=== PATIENT | male | born 2000 | race Caucasian/White ===

== ENCOUNTER 2024-08-16 10:44 | Emergency (ER) | payer MEDICAID, SELFPAY ==
[2024-08-16 11:10] VITALS: BP 145/87; PULSE 95; RESP 19; TEMP 37.1; O2SAT 96; BMI 24.8
--- NOTE | 2024-08-16 11:11 | XR_ITS ---
Examination: Hand, right 3 views Technique: Hand AP, oblique, lateral 3 views Date and time of exam: August 16, 2024 1114 hours INDICATIONS: Patient fell today with injury to the hand, hand pain. FINDINGS: Acute fractures at the bases of the fourth and fifth metacarpals There also appears to be a fracture of the dorsal surface of the hamate IMPRESSION: Recommend CT scan wrist follow-up to better assess fractures base fourth and fifth metatarsals and fractures dorsal distal surface of the hamate
--- NOTE | 2024-08-16 11:47 | XR_ITS ---
Examination: CT right, without contrast. 2-D sagittal reconstructions. 2-D coronal reconstructions. 3-D reconstructions. Date and time of exam:August 16, 2024 1244 hours INDICATIONS: Patient fell one day ago with injury to the wrist, wrist pain CTDI: vol (mGy):3.73 DLP: (mGycm):62.1 Technique: Multiple 1.25 mm axial sections of the right wrist have been obtained. 2-D sagittal and coronal reconstructions have been obtained. 3-D reconstructions have been obtained. Low dose protocols were performed. One or more of the following dose reduction techniques were used; automated exposure control, adjustment of the mA and/or KV according to patient size, use of iterative reconstruction technique. Findings: Acute comminuted fractures base third metacarpal Dorsal dislocation of the base of the third metacarpal relative to the hamate, sagittal image 39 Comminuted displaced small fractures off the dorsal distal aspect of the hamate, sagittal image 41 IMPRESSION: Acute comminuted fractures bases third metacarpal Dorsal dislocation base of the third metacarpal relative to the hamate Displaced Chip fractures off the dorsal distal aspect of the hamate
--- NOTE | 2024-08-16 13:42 | PD.EDRME ---
Rapid Medical Screening Exam RME Arrival date/time: 08/16/24 10:44 23-year-old male presents emergency department complaints of right hand injury after fall Chief Complaint: Hand/Wrist Problems Time Seen by Provider: 08/16/24 11:01 Vital signs: Vital Signs Temperature 98.8 F 08/16/24 11:10 Pulse Rate 95 08/16/24 11:10 Respiratory Rate 19 08/16/24 11:10 Blood Pressure 145/87 H 08/16/24 11:10 Pulse Oximetry (%) 96 08/16/24 11:10 Oxygen Delivery Method Room Air 08/16/24 11:10
[2024-08-16 14:05] VITALS: BP 140/80; PULSE 75; RESP 17; TEMP 37; O2SAT 99
--- NOTE | 2024-08-16 14:23 | EDNOTE_ITS ---
Upper Extremity Injury RME/HPI General Chief Complaint: Hand/Wrist Problems Stated Complaint: Right hand injury yesterday Time Seen by Provider: 08/16/24 11:01 Arrival date/time: 08/16/24 10:44 RME / HPI RME / HPI narrative: 23-year-old male presents emergency department complaints of right hand injury after fall. Incident happened yesterday. Patient complaining of swelling to the right hand, with tenderness described as dull ache severity mild. Denies any other injury no medication was taken prior to arrival. Related Data Previous Rx's ?Medication ?Instructions ?Recorded ibuprofen 800 mg tablet 800 mg PO TID PRN pain #30 tabs 08/16/24 Allergies Allergy/AdvReac Type Severity Reaction Status Date / Time NKA* Allergy Uncoded 08/20/22 16:25 Review of Systems Review of Systems Narrative Review of Systems: Review of system reviewed and within normal limits except mentioned in HPI ED Exam Narrative Physical exam: VITAL SIGNS: Reviewed. GENERAL APPEARANCE: Alert and interactive, follows commands, no acute distress, HEAD AND FACE: Non-traumatic. ENT: PERRL, pink conjunctivitis, eyelid no trauma, Mucous membrane moist. NECK: Supple, nontender, no nuchal rigidity. RECTAL: Deferred. GENITAL: Deferred. NEUROLOGICAL: Gross motor function intact sensory function intact, Appropriate for age. MUSCULOSKELETAL: low back nontender, full range of motion. EXTREMITIES: Right hand swelling, tenderness, with full range of motion. SKIN: Color pink, dry, no rash, no lacerations, no abrasions, no contusions. LYMPHATICS: Deferred. Course Quality Measures none Orders Category Date Time Status CT wrist RT wo con Stat Exams 08/16/24 11:47 Completed XR hand comp RT min 3V Stat Exams 08/16/24 11:11 Completed Vital Signs Vital signs: Vital Signs Temperature 98.8 F 08/16/24 11:10 Pulse Rate 95 08/16/24 11:10 Respiratory Rate 19 08/16/24 11:10 Blood Pressure 145/87 H 08/16/24 11:10 Pulse Oximetry (%) 96 08/16/24 11:10 Oxygen Delivery Method Room Air 08/16/24 11:10 Extremity Injury MDM Narrative MDM Narrative:: X-ray of the right hand showed fracture of the hamate, fracture of the fourth meta carpal, and with dislocation., Patient was placed on the short arm splint. I refer the patient Dr Ramirez hand surgeon, from [place], and told me that patient needs to follow-up outpatient with him next week. Patient data External records reviewed:: None Clinical information provided by:: patient Social determinants that could affect healthcare access:: none Patient has the following chronic illnesses:: None How is presenting disease/condition affected by chronic disease/condition?: no chronic disease Evaluation data The following diagnostics were reviewed and interpreted by me:: radiology exam(s) Lab and/or radiology exams considered but not ordered:: None Interpretation Summary: CT scan of the wrist showed Acute comminuted fractures bases third metacarpal Dorsal dislocation base of the third metacarpal relative to the hamate Displaced Chip fractures off the dorsal distal aspect of the hamate Medications / Prescriptions Medications or Prescriptions considered but not ordered:: None Medication administrations:: None Consultations Consultation(s) initiated? (list below): No Diagnosis Upper Extremity Injury Differential Diagnosis: sprain and strain of wrist, fracture of wrist and fracture of hand Most likely diagnosis given after review of the tests above:: Fracture of the hamate, fracture of the metacarpal, with dislocation Admission Indicated Admission indicated?: not indicated Explain why admission is indicated or not indicated:: Stable Admission Request Was there a request for admission?: No Disposition Plan Disposition Plan: Discharge Discharge Attestation Discharge Attestation: The patient and all family members were given an opportunity to ask questions and understood the discharge instructions. Discharge instructions specifically effects, indications for sooner follow up or return to the emergency department, and the expected course of current diagnosis. Patient condition: Stable Discharge Plan Plan Patient Disposition: HOME (Self Care) Disposition Comment: stable Prescriptions/Referrals Prescriptions/Med Rec: New ibuprofen 800 mg tablet 800 mg PO TID PRN (Reason: pain) Qty: 30 0RF Referrals: Daya Raman PA-C [Primary Care Provider] - In 1 week Elmer Ramirez MD [Referring Provider] - In 1 week (Please call ahead for appointment) Problem List Clinical Impression: Closed hamate fracture, Fracture, metacarpal, Closed dislocation of metacarpal joint Patient/Caregiver Discharge Instructions Discharge Activity: activity as tolerated Education Materials: How [employer] [facility] Additional Instructions: Thank you for the opportunity for serving you today. You are stable for discharged . You are advised to: Follow-up with Namita Ramirez , hand surgeon, in [place], please call ahead for appointment next week Return to ED for worsening of symptoms Increase oral fluids Take medication as prescribed Do not remove the splint for the next 4 weeks or until seen by hand surgeon Print Language: Citizen Of [place] Stand Alone Forms: [facility] Award Info., Patient Portal Info Letter
== END 2024-08-16 16:17 | disposition home or self-care (01) ==
PROVIDERS: Emergency Provider Emergency Medicine; PCP Physician Assistant
DX: S62.141A Displaced fracture of body of hamate [unciform] bone, right wrist, initial encounter for closed fracture (principal); S62.312A Displaced fracture of base of third metacarpal bone, right hand, initial encounter for closed fracture; W19.XXXA Unspecified fall, initial encounter
CPT/HCPCS: 73130; 73200; 99284

== ENCOUNTER 2025-03-02 21:13 | Emergency (ER) | payer MEDICAID, SELFPAY ==
[2025-03-02 21:15] VITALS: BP 144/85; PULSE 89; RESP 17; TEMP 36.9; O2SAT 99
--- NOTE | 2025-03-02 21:25 | XR_ITS ---
Examination: CT cervical spine without contrast 2-D sagittal reconstructions 2-D coronal reconstructions 3-D reconstructions. Exam date and time:March 03, 2025, 0844 hrs. Indications: Patient fell today with injury to the neck, neck pain CTDI:vol (mGy) 10.5 DLP: (mGycm) 283 Technique: Multiple 2 mm axial sections of the cervical spine have been obtained. The coronal and sagittal reconstructions have been obtained. 3-D reconstructions have been obtained. Low dose protocols were performed. One or more of the following dose reduction techniques were used; automated exposure control, adjustment of the mA and/or KV according to patient size, use of iterative reconstruction technique. Findings: Axial sections demonstrate intact base of the skull. C1 exhibit satisfactory relationship to the odontoid. No acute cervical vertebral body fracture seen. Alignment posterior spinous processes satisfactory. Impression: No acute cervical fracture.
--- NOTE | 2025-03-02 21:25 | XR_ITS ---
Examination: CT chest, without intravenous contrast. CT abdomen, without intravenous contrast. CT pelvis, without intravenous contrast. 2-D sagittal and coronal reconstructions. 3-D reconstructions. Date and time of exam:March 03, 2025, 0853 hrs. Indications: Patient fell today with injury to the chest and abdomen, chest pain abdomen pain CTDI vol (mgy) 11.1 DLP (MGycm)910 Technique: Multiple CT images, 3.0 mm slice thickness, obtained chest, abdomen, pelvis, with the high-resolution 64 slice scanner.. Sagittal and coronal 2-D reconstructions are obtained. 3-D reconstructions Low dose protocols were performed. One or more of the following dose reduction techniques were used; automated exposure control, adjustment of the mA and/or KV according to patient size, use of iterative reconstruction technique. Findings: Thoracic aorta pulmonary arteries intact. No hemopericardium, pneumothorax, pulmonary contusion or hemothorax. No liver splenic or renal laceration. Abdominal aorta intact. No gallstones. No free blood in the abdomen or pelvis. Urinary bladder intact. Osseous structures intact Impression: Thoracic aorta pulmonary arteries intact No hemopericardium, pneumothorax, pulmonary contusion or hemothorax. No abdominal parenchymal laceration Abdominal aorta intact No free blood in the abdomen or pelvis
--- NOTE | 2025-03-02 21:25 | XR_ITS ---
Examination: CT brain head without contrast. 2-D sagittal coronal reconstructions Date and time of exam:March 03, 2025, 0844 hrs. Indications: Patient fell today with injury to the head, head pain CTDI: vol (mGy):52.6 DLP: (mGycm):1053 Technique: Multiple CT axial sections of the brain have been obtained, 5 mm slice thickness. Contrast has not been administered. 2-D sagittal, coronal reconstructions have been obtained Low dose protocols were performed. One or more of the following dose reduction techniques were used; automated exposure control, adjustment of the mA and/or KV according to patient size, use of iterative reconstruction technique. Findings: No significant ventricular enlargement. Intra-axial or extra-axial hemorrhage density is not seen. No mass effect or midline shift Basal cisterns are not remarkable. Fourth ventricle is midline. Cranial vault intact. Impression: Negative for acute hemorrhage, mass effect or midline shift
[2025-03-02 21:42] VITALS: PULSE 90; RESP 16; O2SAT 98; BMI 26.2
[2025-03-02 21:51] VITALS: BP 125/97; PULSE 112; RESP 18; TEMP 36.3
--- NOTE | 2025-03-02 21:52 | EDNOTE_ITS ---
ED Alcohol RME/HPI General Chief Complaint: Alcohol Stated Complaint: ETOH Time Seen by Provider: 03/02/25 22:02 Arrival date/time: 03/02/25 21:13 RME / HPI RME / HPI narrative: This section includes all my notes and documentations, including HPI, PE, and ED course. Carlos A Milan MD HPI: 24 y/o male here with probable alcohol intoxication and after falling at home. No witnesses here for details. According to EMS, he fell off the chair. Injuries definitely included head injury. Uncertain about other injuries. Patient can't help with details due to decreased mental status. ROS: Can't obtain from the patient due to current clinical condition. Physical Exam: General: Patient is unresponsive. Eyes: Conjunctivae and lids clear. EOMI. PERRL. ENT: No signs of head trauma. Neck: Supple. No obvious tenderness. Heart: RRR. Lungs: No respiratory distress. Good air movement. No rhonchi, wheezing, rales. Chest: No tenderness. Abdomen: Soft and nontender. Normal bowel sounds. No distension. No rebound or guarding. Back: No tenderness. Skin: Warm and dry. Neuro: Alert and oriented X 3. Cranial Nerves II-XII grossly intact. No peripheral motor deficits. Musculoskeletal: All major joints and bones are not tender with no limited ROM. I reviewed EMS notes. During diagnostic tests, patient became uncooperative and verbally and physically violent. Treatment from [facility] included IV fluid, Zofran, Ativan, Haldol, and thiamine. At 6 AM on 03/03/2025, the care of the patient was transferred to Dr. Gaytan. Carlos A Milan MD Related Data Previous Rx's ?Medication ?Instructions ?Recorded ibuprofen 800 mg tablet 800 mg PO TID PRN pain #30 t abs 08/16/24 Allergies Allergy/AdvReac Type Severity Reaction Status Date / Time NKA* Allergy Uncoded 03/02/25 21:51 Review of Systems Review of Systems Systems Reviewed: All systems reviewed, normal except as documented Past Medical History Social History SMOKING STATUS: Current every day smoker ED Exam Narrative Physical exam: Refer to [facility] Course Quality Measures none Orders Category Date Time Status 1799 Psychiatric Hold NOW Care 03/03/25 00:15 Ordered Saline [Insert IV] NOW Care 03/02/25 21:35 Active Straight [In and Out Catheter] X1 Care 03/02/25 21:[address] cervical spine wo con Stat Exams 03/02/25 21:[address] chest abdomen pelvis wo Stat Exams 03/02/25 21:[address] head/brain wo con Stat Exams 03/02/25 21:25 Ordered Acetaminophen Stat Lab 03/02/25 21:55 Completed Alcohol, Blood Medical Stat Lab 03/02/25 21:55 Completed Amylase Stat Lab 03/02/25 21:55 Completed Bilirubin,Direct Stat Lab 03/02/25 21:55 Completed CBC Stat Lab 03/02/25 21:55 Completed CMP [Comprehensive Metabolic Panel] Stat Lab 03/02/25 21:55 Completed Drug Screen,Urine Stat Lab 03/02/25 23:04 Completed Lipase Stat Lab 03/02/25 21:55 Completed Magnesium Stat Lab 03/02/25 21:55 Completed PT [Prothrombin Time with INR] Stat Lab 03/02/25 21:55 Completed PTT [Partial Thromboplastin Time] Stat Lab 03/02/25 21:55 Completed Salicylate Stat Lab 03/02/25 21:55 Completed Haloperidol Lactate [Haldol Inj] Med 03/03/25 01:12 Discontinued 5 mg IV X1 ONE LORazepam [Ativan Inj] Med 03/02/25 21:36 Discontinued 2 mg IVP X1 ONE LORazepam [Ativan Inj] Med 03/03/25 00:12 Discontinued 4 mg IM X1 ONE Ondansetron Inj [Zofran Inj] Med 03/02/25 21:36 Discontinued 4 mg IVP X1 ONE Sodium Chloride 0.9% 1000 ml [Ns] 1,000 ml Med 03/02/25 21:36 Discontinued IV 999 mls/hr Sodium Chloride 0.9% 1000 ml [Ns] 1,000 ml Med 03/03/25 03:45 Discontinued IV 999 mls/hr Thiamine Inj [Vitamin B-1 Inj] 100 mg Med 03/02/25 21:36 Discontinued Sodium Chloride 0.9% [Ns] 100 ml IV X1 Vital Signs Vital signs: Vital Signs Temperature 98.4 F 03/02/25 21:15 Pulse Rate 89 03/02/25 21:15 Respiratory Rate 17 03/02/25 21:15 Blood Pressure 144/85 H 03/02/25 21:15 Pulse Oximetry (%) 99 03/02/25 21:15 Oxygen Delivery Method Room Air 03/02/25 21:15 Discharge Plan Prescriptions/Referrals Prescriptions/Med Rec: No Action ibuprofen 800 mg tablet 800 mg PO TID PRN (Reason: pain) Qty: 30 0RF Referrals: Rabia Lind PA-C [Primary Care Provider] - In 1 week Problem List Clinical Impression: Alcoholic intoxication, Fall, Head injury Patient/Caregiver Discharge Instructions Print Language: Greek Alcohol MDM Narrative MDM Narrative: Scribe Attestation: Yahaira Ca am scribing for and in the presence of Dr. Milan. Provider Notation: Although this document has been carefully reviewed, there may still be some phonetic and other typographical errors.? These errors are purely grammatical due to imperfections in the software program and should not be construed in any way to? compromise the substance of the patient's medical care during this visit. 24 y/o male here with probable alcohol intoxication and after falling at home. No witnesses here for details. According to EMS, he fell off the chair. Injuries definitely included head injury. Uncertain about other injuries. Patient can't help with details due to decreased mental status. Patient data External records reviewed:: [facility] previous records (Reviewed prior ED records from 08/16/24. Patient was seen for Closed dislocation of metacarpal joint.) and EMS form Clinical information provided by:: patient and EMS Social determinants that could affect healthcare access:: alcohol use Patient has the following chronic illnesses:: None reported How is presenting disease/condition affected by chronic disease/condition?: no chronic disease Evaluation data The following diagnostics were reviewed and interpreted by me:: lab results and radiology exam(s) Lab and/or radiology exams considered but not ordered:: None Interpretation Summary: Diagnostic tests are pending. Medications / Prescriptions Medications or Prescriptions considered but not ordered:: None Medication administrations:: Medication Administration History Discontinued Medications Haloperidol Lactate (Haloperidol Lact Inj 5 Mg/Ml Vial) 5 mg IV X1 ONE Stop: 03/03/25 01:13 Sodium Chloride (Ns) 1,000 mls @ 999 mls/hr IV .Q1H1M ONE Stop: 03/02/25 22:36 Thiamine HCl 100 mg/ Sodium (Chloride) 101 mls @ 202 mls/hr IV X1 ONE Stop: 03/02/25 22:05 Sodium Chloride (Ns) 1,000 mls @ 999 mls/hr IV .Q1H1M ONE Stop: 03/03/25 04:45 Last Admin: 03/03/25 04:42 Dose: 999 mls/hr Documented By: RC Lorazepam (Lorazepam 2 Mg/Ml Vial) 2 mg IVP X1 ONE Stop: 03/02/25 21:37 Lorazepam (Lorazepam 2 Mg/Ml Vial) 4 mg IM X1 ONE Stop: 03/03/25 00:13 Last Admin: 03/03/25 00:30 Dose: 4 mg Documented By: CG Ondansetron HCl (Ondansetron Inj 2 Mg/Ml Inj 2 Ml) 4 mg IVP X1 ONE; Protocol Stop: 03/02/25 21:37 Ativan 2 mg, Zofran 4 mg, IV fluids, Vitamin B-1 100 mg, Haldol 5 mg. Consultations Consultation(s) initiated? (list below): No Diagnosis Differential diagnosis alcohol: alcohol withdrawal delirium, hypomagnesemia, alcohol intoxication, alcohol ketoacidosis, alcohol withdrawal syndrome and alcohol withdrawal seizure Most likely diagnosis given after review of the tests above:: Diagnostic tests are pending. Admission Indicated Admission indicated?: not indicated Explain why admission is indicated or not indicated:: Diagnostic tests are pending. Admission Request Was there a request for admission?: No Disposition Plan Disposition Plan: other (specify) (Care of the patient was transferred to Dr. Gaytan. )
[2025-03-02 22:03] LABS: Basophils % (Auto) 0 % (0-2.5); Eosinophils # (Auto) 0.3 Thou/mm3 (0.0-0.5); Eosinophils % (Auto) 3 % (0-10); Hematocrit 46.9 % (41.0-53.0); Hemoglobin 16.9 g/dL (13.5-16.0); Immature Granulocytes % (Auto) 1 % (0-0); Immature Granulocytes Auto 0.06 Thou/mm3 (0.00-0.00); Lymphocytes # (Auto) 3.1 Thou/mm3 (1.0-4.8); Lymphocytes % (Auto) 33 % (10-50); Mean Corpuscular Hemoglobin 32.8 pg (25.0-35.0); Mean Corpuscular Volume 91 fL (80-100); Monocytes # (Auto) 0.5 Thou/mm3 (0.0-0.8); Monocytes % (Auto) 5 % (0-12); Neutrophils # (Auto) 5.4 Thou/mm3 (1.8-7.7); Neutrophils % (Auto) 58 % (37-80); Nucleated Red Blood Cell % 0 /100 WBC (0); Platelet Count 241 Thou/mm3 (140-440); RDW Standard Deviation 39.4 fL (35.1-43.9); Red Blood Count 5.16 Miln/mm3 (4.50-5.90); White Blood Count 9.3 Thou/mm3 (3.8-10.6)
[2025-03-02 22:04] VITALS: PULSE 80; RESP 30
[2025-03-02 22:05] VITALS: PULSE 82; RESP 30; O2SAT 98
[2025-03-02 22:17] LABS: Partial Thromboplastin Time 26.1 Seconds (22.0-36.0); Prothrombin Time 10.5 Seconds (9.0-12.2)
--- NOTE | 2025-03-02 23:25 | PC.NURSE ---
Pt ripped restraints off and was found standing in ER raza. Pt had urinated on himself and stated he needed to urinate. Attempted to assist pt to the bathroom, but he was too confused and returned to his room. pt used the urinal with minimum difficulty. Pt is hyper-emotional and belligerent, randomly cursing at staff. Security called to pt bedside
[2025-03-03] VITALS (27 sets, daily range): BP systolic 78–143; BP diastolic 45–95; PULSE 65–142; RESP 14–31; TEMP 36.6–36.8; O2SAT 91–100
[2025-03-03] MEDS: LORazepam 2 MG/ML VIAL 4 MG IM (00:30)
[2025-03-03 01:02] LABS: Amphetamine/Methamp Scrn,U Negative (Negative); Barbiturate Screen,Urine Negative (Negative); Benzodiazepines Screen,Urine Negative (Negative); Benzoylecgonine Screen, Ur Negative (Negative); Fentanyl Screen,Urine Negative (Negative); Opiate Screen,Urine Negative (Negative); THC Screen,Urine Positive (Negative)
[2025-03-03 03:17] LABS: Alanine Aminotransferase 29 U/L (10-49); Albumin, Serum 5.3 gm/dL (3.5-5.0); Albumin/Globulin Ratio 2.7 (1.2-2.2); Alkaline Phosphatase 83 U/L (46-116); Anion Gap 10 (7-16); Aspartate Amino Transferase 32 U/L (0-34); BUN/Creatinine Ratio 7 Ratio (12-20); Bilirubin,Direct 0.1 mg/dL (0.0-0.3); Bilirubin,Total 0.4 mg/dL (0.3-1.2); Blood Urea Nitrogen 7 mg/dL (9-23); Calcium 9.7 mg/dL (8.3-10.6); Calcium (Corrected) 9.7 mg/dL (8.5-10.1); Carbon Dioxide 23.7 mMol/L (20.0-31.0); Chloride 104 mMol/L (98-107); Estimated Creatinine Clearance 114.9 mL/min (>60); Glucose 103 mg/dL (74-106); Lipase 36 U/L (12-53); Magnesium 2.5 mg/dL (1.6-2.6); Osmolality,Calculated 273 (275-295); Potassium 3.4 mMol/L (3.4-5.1); Sodium 138 mMol/L (136-145); Total Protein 7.3 gm/dL (5.7-8.2); eGFR > 60 See Note
[2025-03-03 03:18] LABS: Acetaminophen < 2.0 mcg/mL (10.0-20.0); Salicylate < 3.0 mg/dL
[2025-03-03 03:31] LABS: Amylase 72 U/L (30-118)
[2025-03-03 03:32] LABS: Alcohol, Blood Medical 412.7 mg/dL (0-10.0)
[2025-03-03] MEDS: SODIUM CHLORIDE 0.9% 1000 ML 1,000 ML 999 ML IV ×2 (04:42→05:21)
--- NOTE | 2025-03-03 06:19 | EDNOTE_ITS ---
Emergency Room Addendum Addendum Narrative: 0600: Care assumed from Dr. Milan, the previous shift emergency physician. Past medical, surgical, social and family history reviewed. Vitals and home medications reviewed. I will assume the care of the patient at this time, pending diagnostic tests to be medically cleared for mental health evaluation. Please refer to the emergency department record for history and examination from initial visit.? Physical exam by me shows patient under no acute distress at this time. Patient remains clinically stable throughout the emergency department visit. Re- assessment at the time of disposition demonstrates that the patient is in no acute distress. We reviewed all the results, analysis, and treatment plans. Patient is amenable to discharge. Strict return precautions were outlined. Patient was discharged in stable condition. Diagnoses: -Alcoholic intoxication -Fall -Head injury Results Objective Laboratory: Laboratory Last Values WBC 9.3 Thou/mm3 (3.8-10.6) 03/02/25 21:55 RBC 5.16 Miln/mm3 (4.50-5.90) 03/02/25 21:55 Hgb 16.9 g/dL (13.5-16.0) H 03/02/25 21:55 Hct 46.9 % (41.0-53.0) 03/02/25 21:55 MCV 91 fL (80-100) 03/02/25 21:55 MCH 32.8 pg (25.0-35.0) 03/02/25 21:55 MCHC 36.0 g/dl (31.0-37.0) 03/02/25 21:55 RDW Std Deviation 39.4 fL (35.1-43.9) 03/02/25 21:55 Plt Count 241 Thou/mm3 (140-440) 03/02/25 21:55 Neut % (Auto) 58 % (37-80) 03/02/25 21:55 Lymph % (Auto) 33 % (10-50) 03/02/25 21:55 Waller % (Auto) 5 % (0-12) 03/02/25 21:55 Eos % (Auto) 3 % (0-10) 03/02/25 21:55 Baso % (Auto) 0 % (0-2.5) 03/02/25 21:55 Neut # (Auto) 5.4 Thou/mm3 (1.8-7.7) 03/02/25 21:55 Lymph # (Auto) 3.1 Thou/mm3 (1.0-4.8) 03/02/25 21:55 Waller # (Auto) 0.5 Thou/mm3 (0.0-0.8) 03/02/25 21:55 Eos # (Auto) 0.3 Thou/mm3 (0.0-0.5) 03/02/25 21:55 Baso # (Auto) 0.0 Thou/mm3 (0.0-0.2) 03/02/25 21:55 Immature Gran # (Auto) 0.06 Thou/mm3 (0.00-0.00) H 03/02/25 21:55 Absolute Nucleated RBC 0.00 Thou/mm3 (0.00-0.00) 03/02/25 21:55 Immature Gran % 1 % (0-0) H 03/02/25 21:55 Nucleated RBC % 0 /100 WBC (0) 03/02/25 21:55 PT 10.5 Seconds (9.0-12.2) 03/02/25 21:55 INR 1.0 (0.9-1.3) 03/02/25 21:55 APTT 26.1 Seconds (22.0-36.0) 03/02/25 21:55 Sodium 138 mMol/L (136-145) 03/02/25 21:55 Potassium 3.4 mMol/L (3.4-5.1) 03/02/25 21:55 Chloride 104 mMol/L (98-107) 03/02/25 21:55 Carbon Dioxide 23.7 mMol/L (20.0-31.0) 03/02/25 21:55 Anion Gap 10 (7-16) 03/02/25 21:55 BUN 7 mg/dL (9-23) L 03/02/25 21:55 Creatinine 1.0 mg/dL (0.6-1.3) 03/02/25 21:55 Estim Creat Clear Calc 114.9 mL/min (>60) 03/02/25 21:55 eGFR > 60 See Note (60-) 03/02/25 21:55 BUN/Creatinine Ratio 7 Ratio (12-20) L 03/02/25 21:55 Glucose 103 mg/dL (74-106) 03/02/25 21:55 Calculated Osmolality 273 (275-295) L 03/02/25 21:55 Calcium 9.7 mg/dL (8.3-10.6) 03/02/25 21:55 Corrected Calcium 9.7 mg/dL (8.5-10.1) 03/02/25 21:55 Magnesium 2.5 mg/dL (1.6-2.6) 03/02/25 21:55 Total Bilirubin 0.4 mg/dL (0.3-1.2) 03/02/25 21:55 Direct Bilirubin 0.1 mg/dL (0.0-0.3) 03/02/25 21:55 AST 32 U/L (0-34) 03/02/25 21:55 ALT 29 U/L (10-49) 03/02/25 21:55 Alkaline Phosphatase 83 U/L (46-116) 03/02/25 21:55 Total Protein 7.3 gm/dL (5.7-8.2) 03/02/25 21:55 Albumin 5.3 gm/dL (3.5-5.0) H 03/02/25 21:55 Globulin 2.0 gm/dL (2.3-3.5) L 03/02/25 21:55 Albumin/Globulin Ratio 2.7 (1.2-2.2) H 03/02/25 21:55 Amylase 72 U/L (30-118) 03/02/25 21: Lipase 36 U/L (12-53) 03/02/25 21:55 Salicylates < 3.0 mg/dL 03/02/25 21:55 Urine Opiates Screen Negative (Negative) 03/02/25 23:04 Urine Fentanyl Screen Negative (Negative) 03/02/25 23:04 Acetaminophen < 2.0 mcg/mL (10.0-20.0) L 03/02/25 21:55 Ur Barbiturates Screen Negative (Negative) 03/02/25 23:04 U Amphetamin/Meth Scrn Negative (Negative) 03/02/25 23:04 U Benzodiazepines Scrn Negative (Negative) 03/02/25 23:04 U Cocaine Metab Screen Negative (Negative) 03/02/25 23:04 U Marijuana (THC) Screen Positive (Negative) A 03/02/25 23:04 Ethyl Alcohol 198.3 mg/dL (0-10.0) H 03/03/25 07:15 Imaging: Procedure(s): CT head/brain wo con Accession Number(s): [id number] cc: Rabia Lind; Carlos A Milan MD; Baldo Aguilera MD~ Examination: CT brain head without contrast. 2-D sagittal coronal reconstructions Date and time of exam:March 03, 2025, 0844 hrs. Indications: Patient fell today with injury to the head, head pain CTDI: vol (mGy):52.6 DLP: (mGycm):1053 Technique: Multiple CT axial sections of the brain have been obtained, 5 mm slice thickness. Contrast has not been administered. 2-D sagittal, coronal reconstructions have been obtained Low dose protocols were performed. One or more of the following dose reduction techniques were used; automated exposure control, adjustment of the mA and/or KV according to patient size, use of iterative reconstruction technique. Findings: No significant ventricular enlargement. Intra-axial or extra-axial hemorrhage density is not seen. No mass effect or midline shift Basal cisterns are not remarkable. Fourth ventricle is midline. Cranial vault intact. Impression: Negative for acute hemorrhage, mass effect or midline shift Dictated By: Baldo Aguilera MD Procedure(s): CT chest abdomen pelvis wo Accession Number(s): [id number] cc: Rabia Lind; Carlos A Milan MD; Baldo Aguilera MD~ Examination: CT chest, without intravenous contrast. CT abdomen, without intravenous contrast. CT pelvis, without intravenous contrast. 2-D sagittal and coronal reconstructions. 3-D reconstructions. Date and time of exam:March 03, 2025, 0853 hrs. Indications: Patient fell today with injury to the chest and abdomen, chest pain abdomen pain CTDI vol (mgy) 11.1 DLP (MGycm)910 Technique: Multiple CT images, 3.0 mm slice thickness, obtained chest, abdomen, pelvis, with the high-resolution 64 slice scanner.. Sagittal and coronal 2-D reconstructions are obtained. 3-D reconstructions Low dose protocols were performed. One or more of the following dose reduction techniques were used; automated exposure control, adjustment of the mA and/or KV according to patient size, use of iterative reconstruction technique. Findings: Thoracic aorta pulmonary arteries intact. No hemopericardium, pneumothorax, pulmonary contusion or hemothorax. No liver splenic or renal laceration. Abdominal aorta intact. No gallstones. No free blood in the abdomen or pelvis. Urinary bladder intact. Osseous structures intact Impression: Thoracic aorta pulmonary arteries intact No hemopericardium, pneumothorax, pulmonary contusion or hemothorax. No abdominal parenchymal laceration Abdominal aorta intact No free blood in the abdomen or pelvis Dictated By: Baldo Aguilera MD Procedure(s): CT cervical spine wo con Accession Number(s): [id number] cc: Rabia Lind; Carlos A Milan MD; Baldo Aguilera MD~ Examination: CT cervical spine without contrast 2-D sagittal reconstructions 2-D coronal reconstructions 3-D reconstructions. Exam date and time:March 03, 2025, 0844 hrs. Indications: Patient fell today with injury to the neck, neck pain CTDI:vol (mGy) 10.5 DLP: (mGycm) 283 Technique: Multiple 2 mm axial sections of the cervical spine have been obtained. The coronal and sagittal reconstructions have been obtained. 3-D reconstructions have been obtained. Low dose protocols were performed. One or more of the following dose reduction techniques were used; automated exposure control, adjustment of the mA and/or KV according to patient size, use of iterative reconstruction technique. Findings: Axial sections demonstrate intact base of the skull. C1 exhibit satisfactory relationship to the odontoid. No acute cervical vertebral body fracture seen. Alignment posterior spinous processes satisfactory. Impression: No acute cervical fracture. Dictated By: Baldo Aguilera MD
[2025-03-03] MEDS: LORazepam 2 MG/ML VIAL IVP (06:33)
[2025-03-03] MEDS: HALOPERIDOL LACT INJ 5 MG/ML VIAL IV (06:34)
--- NOTE | 2025-03-03 07:15 | PC.NURSE ---
PT OUT OF ROOM STATING HE WANTS TO LEAVE. ATTEMPTING TO PULL OUT IV. PT GUIDED BACK INTO ROOM AND UPDATED ON PLAN OF CARE. PT AGREES TO REMAIN IN BED AND AGREES TO REMAINDER OF WORK UP.
[2025-03-03 08:16] LABS: Alcohol, Blood Medical 198.3 mg/dL (0-10.0)
--- NOTE | 2025-03-03 08:40 | PC.NURSE ---
PT TAKEN TO CT.
== END 2025-03-03 11:48 | disposition home or self-care (01) ==
PROVIDERS: Family Medicine; Emergency Provider Emergency Medicine; PCP Physician Assistant
DX: S09.90XA Unspecified injury of head, initial encounter (principal); S19.9XXA Unspecified injury of neck, initial encounter; S29.9XXA Unspecified injury of thorax, initial encounter; S39.91XA Unspecified injury of abdomen, initial encounter; F10.929 Alcohol use, unspecified with intoxication, unspecified; Y90.6 Blood alcohol level of 120-199 mg/100 ml; W07.XXXA Fall from chair, initial encounter
CPT/HCPCS: 36415; 70450; 71250; 72125; 74176; 80053; 80307; 80320; 80329; 82150; 82248; 83690; 83735; 85025; 85610; 85730; 96361; 96374; 99284; J1630; J2060; J7030; G0480

== ENCOUNTER 2025-08-08 01:25 | Emergency (ER) | payer MEDICAID, SELFPAY ==
[2025-08-08 01:29] VITALS: BMI 24.3
[2025-08-08 01:30] VITALS: PULSE 82; RESP 18; O2SAT 98; BMI 24.3
[2025-08-08 01:34] VITALS: BP 131/90; PULSE 105; RESP 18; TEMP 37.1; O2SAT 97
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
[2025-08-08] MEDS: AMPICILLIN/SULBAC INJ 3 GM in SODIUM CHLORIDE 0.9% (POP) 100 ML IV (02:06)
[2025-08-08] MEDS: KETOROLAC INJ 30 MG/ML VIAL IVP (02:06)
[2025-08-08] MEDS: SODIUM CHLORIDE 0.9% 1000 ML 1,000 ML 999 ML IV (02:07)
[2025-08-08] MEDS: DIPHTH,PERTUSS(ACELL),TET VAC 0.5 ML SYR- ADULT IMi (02:10)
[2025-08-08] MEDS: BACITRACIN OINT 1 GM PACKET TOP (02:12)
[2025-08-08] MEDS: LIDOCAINE HCL 1% 20 ML VIAL INFL (02:14)
[2025-08-08 03:15] LABS: Alcohol, Blood Medical 255.3 mg/dL (0-10.0); Anion Gap 13 (7-16); BUN/Creatinine Ratio 6 Ratio (12-20); Blood Urea Nitrogen 6 mg/dL (9-23); Calcium 8.8 mg/dL (8.3-10.6); Carbon Dioxide 21.7 mMol/L (20.0-31.0); Chloride 112 mMol/L (98-107); Creatinine (Component) 1.0 mg/dL (0.6-1.3); Estimated Creatinine Clearance 118.6 mL/min (>60); Glucose 98 mg/dL (74-106); Osmolality,Calculated 290 (275-295); Potassium 3.6 mMol/L (3.4-5.1); Sodium 147 mMol/L (136-145); eGFR > 60 See Note
[2025-08-08 03:24] LABS: Basophils # (Auto) 0.1 Thou/mm3 (0.0-0.2); Basophils % (Auto) 0 % (0-2.5); Eosinophils # (Auto) 0.1 Thou/mm3 (0.0-0.5); Eosinophils % (Auto) 1 % (0-10); Hematocrit 42.2 % (41.0-53.0); Hemoglobin 14.5 g/dL (13.5-16.0); Immature Granulocytes Auto 0.13 Thou/mm3 (0.00-0.00); Lymphocytes # (Auto) 2.0 Thou/mm3 (1.0-4.8); Lymphocytes % (Auto) 14 % (10-50); Mean Corpuscular HGB Conc 34.4 g/dl (31.0-37.0); Mean Corpuscular Hemoglobin 32.5 pg (25.0-35.0); Mean Corpuscular Volume 95 fL (80-100); Monocytes # (Auto) 0.7 Thou/mm3 (0.0-0.8); Monocytes % (Auto) 5 % (0-12); Neutrophils # (Auto) 10.9 Thou/mm3 (1.8-7.7); Neutrophils % (Auto) 78 % (37-80); Nucleated Red Blood Cell # 0.00 Thou/mm3 (0.00-0.00); Nucleated Red Blood Cell % 0 /100 WBC (0); Platelet Count 235 Thou/mm3 (140-440); RDW Standard Deviation 42.8 fL (35.1-43.9); Red Blood Count 4.46 Miln/mm3 (4.50-5.90); White Blood Count 13.9 Thou/mm3 (3.8-10.6)
[2025-08-08 03:46] VITALS: BP 131/82; PULSE 109; RESP 19; TEMP 36.9; O2SAT 96
== END 2025-08-08 04:00 | disposition home or self-care (01) ==
PROVIDERS: Emergency Provider Emergency Medicine; PCP Internal Medicine
DX: S41.111A Laceration without foreign body of right upper arm, initial encounter (principal); F10.929 Alcohol use, unspecified with intoxication, unspecified; Y90.8 Blood alcohol level of 240 mg/100 ml or more; W22.09XA Striking against other stationary object, initial encounter; Z23 Encounter for immunization
CPT/HCPCS: 12002; 36415; 80048; 80320; 85025; 90471; 90715; 96365; 96375; 99282; J0295; J1885; J3490; J7030; A9270; G0480